=== PATIENT | male | born 1940 | race Caucasian/White ===

== ENCOUNTER → 2019-03-08 | Outpatient (CLI) | payer MEDICARE, BC, OTHER ==
[~2019-03-08] MED LIST: LOSARTAN-HCTZ1 EAC1 PO; NORVASC5 M1 PO; OMEPRAZOLE20 M2 PO; TOPROL XL50 MG PO
--- NOTE | ~2019-03-08 | PAINCON ---
[address] [address] PAIN MANAGEMENT CONSULTATION Name: DINORAH CHEN [id number] Admission: 03/08/19 Attend Phys: Prabha Vallejo MD Discharge: Date of : 40 Report #: [id number] THIS REPORT FOR: //name// CC: Douglas Vallejo DATE OF SERVICE: 03/08/2019 CHIEF COMPLAINT: Two pains, pain up in the upper chest area and some pain in the lower right side that goes into my hamstring. HISTORY: The patient is a 78-year-old gentleman, who has been referred to the pain clinic. He has 2 pains. He has 1 pain in "middle of his back," which has been problematic as well as some pain in the right low back area. The pain in the middle of his back happened in 2012. He was on a cruise ship and fell and hit his back. He did undergo injections in this area and noticed some relief. He continues to have at this point pain in the upper back, which he describes as constant. He also has second pain in the lower portion of his back, which changes with activity. He states that this pain radiates from the lower portion of his back and in the gluteal area into his hamstrings. He describes that as constant, sharp, and can be relieved by applying pressure in the area of the pain. He has not undergone physical therapy, but has been given some stretching exercises to help alleviate and decrease the pain in lower portion of the back. He is unable to take some medications because he has some problems with his kidneys. He has been referred to the pain clinic for evaluation. PAST MEDICAL HISTORY: 1. Benign hypertension with chronic kidney disease, stage 2. 2. Chronic bilateral low back pain. 3. Right-sided thoracic pain. PAST SURGICAL HISTORY: Shoulder surgery in 2016, elbow surgery in 2013, prostate surgery in 2018, and vasectomy in 1964. MEDICATIONS: Norvasc 5 mg, vitamin D3 1000 units, Flexeril 10 mg nightly, Valium 5 mg p.r.n. anxiety, losartan/hydrochlorothiazide 100/25 mg, Prilosec 20 mg, Phenergan with Codeine p.r.n. cough, Cialis 5 mg erectile dysfunction; multivitamin/minerals, and discontinued prednisone 10 mg 2 times daily for 7 days. ALLERGIES: ____. SOCIAL HISTORY: He is retired and has not worked since 2003. REVIEW OF SYSTEMS: Generally, in good health, wears glasses, hearing loss, heart trouble, chronic cough, frequent urination, joint pain, back pain, [place] [address] PAIN MANAGEMENT CONSULTATION Name: DINORAH CHEN Room: [facility]#: [id number] Admission: 03/08/19 Attend Phys: Prabha Vallejo MD Discharge: Date of : 40 Report #: [id number] frequent headaches. Pain impact score is 46/70. PAIN CLINIC ASSESSMENT AND PQRS: 1. History of osteoarthritis or rheumatoid arthritis. The patient is not being treated for osteoarthritis or rheumatoid arthritis. 2. Pain intensity is 5-6/10. 3. Fall risk. The patient has not fallen in the last 3 months. 4. Blood thinner. The patient is not on a blood thinning medication. 5. Hypertension. The patient is being treated for hypertension. 6. Opioids. The patient is not receiving opioid medication on a regular basis. 7. Risk assessment tool, low for opioid use. 8. Functional assessment tool. 9. Recreational drug use. The patient denies use of recreational drugs. 10. Tobacco: The patient denies use of tobacco. 11. Alcohol: The patient drinks beer or wine daily. PHYSICAL EXAMINATION: GENERAL: The patient is a well-developed, well-nourished white male. He appears his stated age. He is alert and oriented x 3. His affect is appropriate. Speech is fluent. Height is 5 feet 9 inches, weight is 189 pounds, and BMI is 27.9. VITAL SIGNS: Blood pressure is 150/62, heart rate is 52, respiratory rate is 16, room air saturation is 97%, and temperature is 98.2. HEENT: Normocephalic, atraumatic. Extraocular eye muscles intact. Sclerae nonicteric. Mucous membranes moist. NECK: Without adenopathy or JVD. MUSCULOSKELETAL: Upper extremity muscle strength is judged to be 5-/5. Deep tendon reflexes are absent for the left and right biceps. The patient is without significant scoliosis, kyphosis, or lordosis. The patient does have some pain and discomfort in approximately the T9/T10 area. Palpation in this area does reproduce a trigger point in the intercostal area. The patient also has pain and discomfort in the lower portion of his back near the right posterior superior iliac spine area with pain that radiates down into the posterior portion of his leg. Palpation in this area of a spotted trigger point does relieved pain and discomfort that is involving the right leg. Lower extremity muscle strength is judged to be 5-/5. Deep tendon reflexes are +3 on the left leg and +2 on the right patellar area. LABORATORY AND DIAGNOSTIC DATA: MRI of the thoracic spine without contrast dated 02/15/2018: Impression: 1. Multilevel endplate degenerative changes. No evidence of thoracic compression fracture. 2. No evidence of thoracic disk herniation, central stenosis, or neural foraminal stenosis. MRI of the lumbar spine dated 02/15/2018: [place] [address] PAIN MANAGEMENT CONSULTATION Name: DINORAH CHEN Room: [facility]#: [id number] Admission: 03/08/19 Attend Phys: Prabha Vallejo MD Discharge: Date of : 40 Report #: [id number] Impression: Mild disk endplate and facet degenerative changes. Relative central canal and neural foraminal narrowing. EMG dated 02/13/2018: Impression: 1. Electrodiagnostic evidence of right lumbosacral radiculopathy or plexopathy. 2. No electrodiagnostic evidence of focal neuropathy involving the right femoral, tibial, peroneal, or sural nerves. 3. No electrodiagnostic evidence of peripheral polyneuropathy. 4. No electrodiagnostic evidence of myopathy. 5. This was an entirely normal EMG of the right lower extremity and related lumbosacral paraspinals. IMPRESSION: 1. Myofascial pain in the thoracic intercostal areas at T9/T10. 2. Myofascial pain in the lower portion of the back, right low back area near the latissimus dorsi and posterior superior iliac spine near the gluteus jami. 3. Benign hypertension with chronic kidney disease, stage 2. 4. Chronic bilateral low back pain. 5. Right-sided thoracic pain. RECOMMENDATIONS: We have discussed treatment options with the patient. Risks and benefits of trigger point injections were discussed. The patient feels that the area that is most problematic at this juncture is the right back area, T9/T10 area. Palpation in this area could readily reproduced that pain and discomfort. We discussed the possible options. One is the conservative approach and to do nothing, second is to consider injection of the intercostal area. Possibility of bleeding, pneumothorax, increased pain, and worsening of pain were discussed. The patient elects to proceed. PROCEDURE NOTE: The patient was placed in the sitting position. His right T9/T10 area was sterilely prepped with a Betadine solution. A 25-gauge 2-inch needle was then used to identify the area of discomfort between the T9 and T10 area. The T9 rib was palpated. A 25-gauge needle was then used to walk down and contact the rib. This was then slowly walked to the inferior portion of the T9 rib. Aspiration was negative. A total of 80 mg of Depo-Medrol and 5 mL of 0.5% bupivacaine was injected. The patient tolerated the procedure well. He will follow up in the future as needed. Possibility of another trigger point in the lower back area has been discussed. We would like to thank you for letting us to participate in his care. We hope he continues to improve. By: [id number]. Jesse Vallejo MD /YANETH
== END | disposition home or self-care (01) ==
LOC: M.PC 08:30
DX: M79.18 Myalgia, other site (principal); G89.29 Other chronic pain; I12.9 Hypertensive chronic kidney disease with stage 1 through stage 4 chronic kidney disease, or unspecified chronic kidney disease; N18.2 Chronic kidney disease, stage 2 (mild); M54.6 Pain in thoracic spine; F41.9 Anxiety disorder, unspecified; Z98.890 Other specified postprocedural states; Z79.899 Other long term (current) drug therapy

== ENCOUNTER → 2019-08-16 | Outpatient (CLI) | payer MEDICARE, BC, OTHER ==
--- NOTE | 2019-08-22 09:09 | PAINCON ---
[address] [address] PAIN MANAGEMENT CONSULTATION Name: CHENDINORAH Room: [facility]#: [id number] Admission: 08/16/19 Attend Phys: Prabha Vallejo MD Discharge: Date of : 40 Report #: [id number] THIS REPORT FOR: //name// CC: Douglas Vallejo DATE OF SERVICE: 08/16/2019 CHIEF COMPLAINT: Low back pain. HISTORY OF PRESENT ILLNESS: This is a 78-year-old gentleman who has been seen in the pain clinic because of low back pain. The patient has some pain and discomfort in his low back area. He underwent a trigger point injection in February of this year. Noticed that there was benefit from that. Pain was primarily on the right, but now he is experiencing pain on both sides and it is constant. Does go to the gym about 2-3 times a week. He likes to play a game called Pickleball. Finds that is quite accelerating. He has had some pain that is radiating in the upper leg at times. He has tried Aleve on a p.r.n. basis. He does have some problems with his kidneys and takes the nonsteroidals sparingly. He would like treatment for the low back and hip pain. ALLERGIES: No known drug allergies. CURRENT MEDICATIONS: Norvasc 5 mg, vitamin D3 1000 units, Flexeril 10 mg nightly, Valium 5 mg p.r.n., losartan/hydrochlorothiazide 100/25, Prilosec 20 mg, Phenergan with Codeine p.r.n. cough, Cialis 5 mg p.r.n., multivitamins/minerals. ALLERGIES: No known drug allergies. PAIN CLINIC ASSESSMENT AND PQRS: 1. History of osteoarthritis, rheumatoid arthritis. The patient is not being treated for osteoarthritis or rheumatoid arthritis. 2. Height 5 feet 9 inches, weight 184 pounds, BMI is 27.3. 3. Vitamins. 4. Blood pressure 151/78, heart rate 58, respiratory rate 16, room air saturation 96%, temperature is 98.3. 5. Pain intensity 4-5/10. 6. Fall history: The patient has not fallen in the last 3 months. 7. Blood thinner. The patient is not on a blood thinning medication. 8. Hypertension. The patient is being treated for hypertension. 9. Opioids. The patient is not receiving opioids on a regular basis. 10. Risk assessment tool, low for opioid use. 11. Functional assessment tool. 12. Recreational drug use. The patient denies. 13. Tobacco: The patient [place] [address] PAIN MANAGEMENT CONSULTATION Name: DINORAH CHEN Room: [facility]#: [id number] Admission: 08/16/19 Attend Phys: Prabha Vallejo MD Discharge: Date of : 40 Report #: [id number] 14. Alcohol: The patient drinks beer or wine daily. PHYSICAL EXAMINATION: GENERAL: The patient is a well-developed, well-nourished white male. Appears his stated age. He is alert and oriented x 3. His affect is appropriate. Speech is fluent. HEENT: Normocephalic, atraumatic. Extraocular eye muscles intact. Sclerae nonicteric. Mucous membranes are moist. NECK: Without adenopathy or JVD. EXTREMITIES: Upper extremity muscle strength judged to be 5/5 for the major muscle groups in the upper extremity. The patient has without significant scoliosis, kyphosis or lordosis. The patient has pain and discomfort in the T8-T9 area in the past, this has improved since the last injection. The patient has pain and discomfort down in the low back area near the left and right iliac areas. Palpation in this area near the L5-S1 area and facet joint does reproduce a component of the patient's discomfort. Left-sided palpation in the facet area into the L5-S1 also causes some discomfort. IMPRESSION: 1. Left and right L5-S1 facet joint dysfunction. 2. Myofascial pain in the intercostal area in the past at T9/T10. 3. Benign hypertension with chronic kidney disease stage 2. 4. Chronic bilateral low back pain. 5. Right-sided thoracic pain history. RECOMMENDATIONS: We discussed treatment options with the patient. At this juncture, he feels that his pain continues to be problematic. Pain is primarily in the low back area with pain that he can place his finger upon in the area of the facet joint. Forward extension causes worsening of the pain, lumbar flexion causes worsening of pain, lumbar extension less painful, left and right lateral rotation. Left lateral rotation can increase pain and discomfort on the right side. We discussed treatment options with the patient. Risks and benefits of the facet joint were discussed. Possible complications of the procedure, which could include but are not limited to infection, worsening pain, no improvement in pain, nerve damage, bleeding were discussed and the patient elects to proceed. PROCEDURE NOTE: The patient was taken to the procedure area. He was then assisted in getting out on the examination table. His back was sterilely prepped with a Betadine solution. A facet injection on the left side was performed. The skin had been sterilely prepped with 0.25% bupivacaine. A 25-gauge needle was then advanced into the area to numb the skin. A 20-gauge spinal needle was then advanced into the left facet area. Aspiration was negative. A 20 mg triamcinolone was injected into this area. An injection of 2 [place] [address] PAIN MANAGEMENT CONSULTATION Name: DINORAH CHEN Room: [facility]#: [id number] Admission: 08/16/19 Attend Phys: Prabha Vallejo MD Discharge: Date of : 40 Report #: [id number] mL of 0.5% bupivacaine was injected around the areas as well. The patient tolerated the procedure well. The contralateral left side was treated in a like fashion. A 25-gauge needle was then used to anesthetize the skin. A 20-gauge spinal needle was then advanced into the area of the left facet joint at L5-S1. The aspiration was negative 20 mg triamcinolone was injected into the area. A total of 2 mL of bupivacaine was injected. The patient tolerated the procedure well. He remained in the pain clinic for an appropriate amount of time. He will follow up in the future as needed. We would like to thank you for letting us participate in his care. We hope he continues to improve. <ELECTRONICALLY SIGNED> By: Prabha Vallejo MD 08/22/19 [id number]. Jesse Vallejo MD /YANETH
== END | disposition home or self-care (01) ==
LOC: M.PC 04:37
DX: M54.5 Low back pain (principal); M47.816 Spondylosis without myelopathy or radiculopathy, lumbar region; G89.29 Other chronic pain; M79.18 Myalgia, other site; I12.9 Hypertensive chronic kidney disease with stage 1 through stage 4 chronic kidney disease, or unspecified chronic kidney disease; N18.2 Chronic kidney disease, stage 2 (mild); Z98.890 Other specified postprocedural states; Z79.899 Other long term (current) drug therapy

== ENCOUNTER → 2020-08-05 | Outpatient (CLI) | payer MEDICARE, BC, OTHER ==
[~2020-08-05] MED LIST changes: +MEDROLDOSEPACK PO; +VOLTAREN GEL 1100 G1 TOP
== END ==
LOC: M.PC 10:54
PROVIDERS: ATTEND Anesthesiology Pain Medicine
DX: M53.87 Other specified dorsopathies, lumbosacral region (principal); I12.9 Hypertensive chronic kidney disease with stage 1 through stage 4 chronic kidney disease, or unspecified chronic kidney disease; N18.2 Chronic kidney disease, stage 2 (mild); M79.10 Myalgia, unspecified site; G89.29 Other chronic pain; Z87.39 Personal history of other diseases of the musculoskeletal system and connective tissue